=== PATIENT | male | born 1990 | race Caucasian/White ===

== ENCOUNTER 2019-12-25 22:21 | Inpatient (IN) | payer OTHER ==
[~2019-12-25] VITALS: Ht 180.3 cm; Wt 106.9 kg
[2019-12-25 23:11] LABS: BASOPHILS ABSOLUTE AUTO 0.12 K/mm3 (0.00-0.23); BASOPHILS PERCENT AUTO 1 % (0-2); EOSINOPHILS ABSOLUTE AUTO 0.15 K/mm3 (0.00-0.68); EOSINOPHILS PERCENT AUTO 1 % (0-6); Hematocrit 51.8 % (37.0-53.0); Hemoglobin 17.3 g/dL (13.5-17.5); IMMATURE GRAN ABSOLUTE AUTO 0.09 K/mm3 (0.00-0.10); IMMATURE GRAN PERCENT AUTO 1 % (0-1); LYMPHOCYTES ABSOLUTE AUTO 1.53 K/mm3 (0.84-5.20); LYMPHOCYTES PERCENT AUTO 11 % (21-46); MONOCYTES ABSOLUTE AUTO 1.23 K/mm3 (0.16-1.47); MONOCYTES PERCENT AUTO 9 % (4-13); Mean Corpuscular HGB 31.6 pg (26.0-34.0); Mean Corpuscular HGB Conc 33.4 g/dL (31.5-36.5); Mean Corpuscular Volume 95 fL (80-100); Mean Platelet Volume 10.3 fL (9.1-12.4); NEUTROPHILS ABSOLUTE AUTO 11.19 K/mm3 (1.96-9.15); NEUTROPHILS PERCENT AUTO 78 % (41-73); Platelet Count 199 K/mm3 (150-400); RDW Coefficient Variation 12.3 % (11.7-14.2); RDW Standard Deviation 43.1 fL (35.1-46.3); Red Blood Cell Count 5.48 M/mm3 (4.30-5.90); White Blood Cell Count 14.31 K/mm3 (4.00-11.30)
[2019-12-25 23:30] LABS: Alanine Aminotransfer (ALT/SGP 209 U/L (12-78); Albumin, Blood 3.9 g/dL (3.4-5.0); Albumin/Globulin Ratio 1.1 (0.8-1.8); Alk Phos 64 U/L (50-136); Anion Gap 9 mmol/L (6-16); Aspartate Aminotrans (AST/SGOT 171 U/L (12-37); Bilirubin, Total 1.4 mg/dL (0.1-1.0); Blood Urea Nitrogen 6 mg/dL (8-24); Bun/Creatinine Ratio 8.3 (12.0-20.0); CO2, Blood 27 mmol/L (21-32); Calcium, Blood 9.5 mg/dL (8.5-10.1); Chloride, Blood 102 mmol/L (98-108); Creatinine, Blood 0.73 mg/dL (0.60-1.20); Globulin, Blood 3.7 g/dL (2.2-4.0); Glomerular Filtration Rate >60 (60-); Glucose, Blood 154 mg/dL (70-99); Potassium, Blood 3.5 mmol/L (3.5-5.5); Sodium, Blood 138 mmol/L (136-145); Total Protein, Blood 7.6 g/dL (6.4-8.2)
[2019-12-26] MEDS ORDERED: Prinivil10 MG PO (02:08)
[2019-12-26 04:26] LABS: BASOPHILS ABSOLUTE AUTO 0.09 K/mm3 (0.00-0.23); BASOPHILS PERCENT AUTO 1 % (0-2); EOSINOPHILS ABSOLUTE AUTO 0.01 K/mm3 (0.00-0.68); EOSINOPHILS PERCENT AUTO 0 % (0-6); Hematocrit 51.7 % (37.0-53.0); Hemoglobin 17.3 g/dL (13.5-17.5); IMMATURE GRAN ABSOLUTE AUTO 0.04 K/mm3 (0.00-0.10); IMMATURE GRAN PERCENT AUTO 0 % (0-1); LYMPHOCYTES ABSOLUTE AUTO 1.06 K/mm3 (0.84-5.20); LYMPHOCYTES PERCENT AUTO 9 % (21-46); MONOCYTES ABSOLUTE AUTO 1.36 K/mm3 (0.16-1.47); MONOCYTES PERCENT AUTO 12 % (4-13); Mean Corpuscular HGB 31.2 pg (26.0-34.0); Mean Corpuscular HGB Conc 33.5 g/dL (31.5-36.5); Mean Corpuscular Volume 93 fL (80-100); NEUTROPHILS ABSOLUTE AUTO 9.11 K/mm3 (1.96-9.15); NEUTROPHILS PERCENT AUTO 78 % (41-73); Platelet Count 187 K/mm3 (150-400); RDW Standard Deviation 41.8 fL (35.1-46.3); Red Blood Cell Count 5.54 M/mm3 (4.30-5.90); White Blood Cell Count 11.67 K/mm3 (4.00-11.30)
[2019-12-26 04:52] LABS: Alanine Aminotransfer (ALT/SGP 188 U/L (12-78); Albumin, Blood 3.8 g/dL (3.4-5.0); Albumin/Globulin Ratio 1.1 (0.8-1.8); Anion Gap 10 mmol/L (6-16); Aspartate Aminotrans (AST/SGOT 136 U/L (12-37); Bilirubin, Total 1.9 mg/dL (0.1-1.0); Blood Urea Nitrogen 5 mg/dL (8-24); CHOL/HDL RATIO 2.9; CO2, Blood 25 mmol/L (21-32); Calcium, Blood 9.6 mg/dL (8.5-10.1); Chloride, Blood 102 mmol/L (98-108); Cholesterol 214 mg/dL (50-200); Globulin, Blood 3.4 g/dL (2.2-4.0); Glucose, Blood 100 mg/dL (70-99); HDL Cholesterol 75 mg/dL (>39); LDL/HDL RATIO 1.6; Low Density Lipoprotein Chol 123 mg/dL (0-110); Magnesium, Blood 1.5 mg/dL (1.6-2.4); Potassium, Blood 3.9 mmol/L (3.5-5.5); Sodium, Blood 137 mmol/L (136-145); Total Protein, Blood 7.2 g/dL (6.4-8.2); Triglycerides 79 mg/dL (30-140); Very Low Density Lipoprot Chol 15 mg/dL (6-28)
[2019-12-26 05:01] LABS: Alk Phos 59 U/L (50-136); Bun/Creatinine Ratio 8.1 (12.0-20.0); Creatinine, Blood 0.61 mg/dL (0.60-1.20); Glomerular Filtration Rate >60 (60-)
--- NOTE | 2019-12-26 07:33 | NUR ---
END OF SHIFT SUMMARY PT TO UNIT FROM ED. PT HAD JUST RECEIVED IV FENTANYL IN ED. PT STATES EPIGASTRIC PAIN BUT WAS TOLERABLE. CIWA <8 AT THAT TIME. ADMISSION PAPERWORK COMPLETED. EPIGASTRIC PAIN INCREASED GREATLY ANDS SBP MIKIE >160. ORDERES RECEIVED FOR IV HYDRALZINE AND FENTANYL. ADMINISTERED TO NO AVAOIL. DR TO ROOM. ORDERES PLACED. GRADUALLY, CIWA >8, IV ATIVAN 2MG ADMINISTERED, 50MG LIBRIUM GIVEN, AND EVENTUALLY IV DILAUDID ADMINISTERED. THIS COMBINATION FINALLY HELPED TO RELIEVE THE PATIENT'S PAIN. SINCE DILAUDID ADMIN, PT HAS BEEN RESTING QUIETLKY. NONLABOIRED RR >14. NS INFUSING AT 125 ALONG WITH IV THIAMINE AND KCL PER EMAR. PT ASYMPTOMATIC TO THIS. NOW THAT PAIN IS BEING RELIVED, SBP 160 AND DECREASING SLOWLY. REPORT GIVEN TO ONCOMING RN.
--- NOTE | 2019-12-26 19:38 | NUR ---
SHIFT SUMMARY PT A&Ox4; CALM AND COOPERATIVE [facility] CARE. PT RESTING IN BED DURING SHIFT, IND IN ROOM. PT REPORTS SEVERE EPIGASTRIC PAIN, MEDICATED PER EMAR WITH POSITIVE RESULTS FROM DILAUDID. PT REPORTS NAUSEA THIS AFTERNOON, RESOLVE AFTER ZOFRAN x1. CIWA SCORE 6-9 T/O SHIFT, MEDICATED WITH ATIVAN x1 FOR TREMORS, ANXIETY AND AGGITATION. PT RECEIVED THIAMINE, MAGNESIUM AND POTASSIUM REPLACEMENTS. PT REQUESTING WATER T/O SHIFT, EDUCATED PT ON THE NEED TO REST GI TRACT; OFFERED MOUTH SWABS. ELEVATED BP NOTED, NOTIFIED DR SOTO THIS AFTERNOON, NEW ORDERS; ADMINISTERED CLONIDINE x1. OTHER VSS. NO OTHER ACUTE CHANGES NOTED. REPORT GIVEN TO ONCOMING RN.
--- NOTE | 2019-12-26 20:00 | NUR ---
ASSUMED CARE AT 1900. REVIEWED NEED FOR ADDITIONAL PAIN RELIEF OF ABD PAIN. NO ATTEMPT TO TAKE SIP OF H2O SO DEFERRED USE OF LIBRIUM FOR NOW. SUBLIMAZE IV , LOWEST DOSE. CIWA 1-2. W/ SUCH MINIMAL TREMORS OF HANDS. CLEAR MENTATION AND NO ACUTE ISSUES RELATED TO GI OR ETOH WITHDRAWL.ZOFRAN GIVEN MORE TO PREVENT NAUSEA. OFF TO SLEEP . REPORT TO BELKIS CABALLERO TO ASSUME CARE AT 1000.
[2019-12-27 04:09] LABS: BASOPHILS ABSOLUTE AUTO 0.07 K/mm3 (0.00-0.23); BASOPHILS PERCENT AUTO 1 % (0-2); EOSINOPHILS ABSOLUTE AUTO 0.13 K/mm3 (0.00-0.68); EOSINOPHILS PERCENT AUTO 1 % (0-6); Hematocrit 50.5 % (37.0-53.0); Hemoglobin 16.8 g/dL (13.5-17.5); IMMATURE GRAN ABSOLUTE AUTO 0.04 K/mm3 (0.00-0.10); IMMATURE GRAN PERCENT AUTO 0 % (0-1); LYMPHOCYTES PERCENT AUTO 12 % (21-46); MONOCYTES ABSOLUTE AUTO 1.27 K/mm3 (0.16-1.47); MONOCYTES PERCENT AUTO 11 % (4-13); Mean Corpuscular HGB 31.5 pg (26.0-34.0); Mean Corpuscular HGB Conc 33.3 g/dL (31.5-36.5); Mean Corpuscular Volume 95 fL (80-100); Mean Platelet Volume 11.1 fL (9.1-12.4); NEUTROPHILS ABSOLUTE AUTO 8.96 K/mm3 (1.96-9.15); NEUTROPHILS PERCENT AUTO 76 % (41-73); Platelet Count 149 K/mm3 (150-400); RDW Coefficient Variation 11.9 % (11.7-14.2); RDW Standard Deviation 41.9 fL (35.1-46.3); Red Blood Cell Count 5.34 M/mm3 (4.30-5.90); White Blood Cell Count 11.87 K/mm3 (4.00-11.30)
[2019-12-27 04:26] LABS: Anion Gap 7 mmol/L (6-16); Blood Urea Nitrogen 5 mg/dL (8-24); Bun/Creatinine Ratio 6.8 (12.0-20.0); CO2, Blood 25 mmol/L (21-32); Calcium, Blood 8.5 mg/dL (8.5-10.1); Chloride, Blood 101 mmol/L (98-108); Creatinine, Blood 0.74 mg/dL (0.60-1.20); Glomerular Filtration Rate >60 (60-); Glucose, Blood 86 mg/dL (70-99); Magnesium, Blood 1.9 mg/dL (1.6-2.4); Sodium, Blood 133 mmol/L (136-145)
--- NOTE | 2019-12-27 05:10 | NUR ---
SHIFT SUMMARY: PT IS ALERT AND ORIENTED. PT IS CALM AND COOPERATIVE WITH CARE. PT CALLS APPROPRIATELY. PT IS INDEPENDENT IN THE ROOM. PT REPORTS INTERMITTENT ABD PAIN, MEDICATING PER EMAR. PT DENIES NAUSEA, VOMITING, AND SOB. NO WITHDRAWAL SYMPTOMS THROUGHOUT THE NIGHT. PT SLEPT MUCH OF THE SHIFT WHEN NOT DISTURBED. NO ACUTE CHANGES OR COMPLICATIONS THIS SHIFT. WILL CONTINUE TO MONITOR.
--- NOTE | 2019-12-27 16:41 | NUR ---
PATIENT ARRIVED TO ROOM 333 VIA WHEELCHAIR ACCOMPANIED BY AN RN. PATIENT TRANSFERED SELF INTO HOSPITAL BED AND SETTLED INTO ROOM. NO COMPLAINTS OF PAIN OR DISCOMFORT AT THIS TIME. WILL CONTINUE TO MONITOR AND PROVIDE CARE NEEDED.
--- NOTE | 2019-12-27 16:42 | NUR ---
SHIFT SUMMARY PT A&Ox4; COOPERATIVE WITH CARE. PT SBA TO BATHROOM; RESTINGI N BED FOR MAJORITY OF SHIFT. PT REPORTS SLEEPING FOR MAJORITY OF SHIFT. CIWA RANGING FROM 6-11; MEDICATED PER EMAR. PT REPORTS SEVERE EPIGASTRIC PAIN; MEDICATED PER EMAR. STARTED ON CLEAR LIQUIDS, EDUCATED PT ON TAKING SMALL SIPS. PT REPORTS NAUSEA INTERMITTIENTLY. ELEVATED BP NOTED; MEDICATED WITH SCHDULED AND PRN MEDCIATIONS. OTHER VSS. NO OTHER ACUTE CHANGES NOTED. REPORT GIVEN TO YAKELIN Louie RN ASSUMING CARE OF PT. PT TRANSFERED TO ROOM 333 AT APPROX 1430.
--- NOTE | 2019-12-27 19:36 | NUR ---
PT STATES HE FEELS A LITTLE "JERKY AND SHAKY". MILD TREMORS VISIBLE. CIWA SCORE OF 5. ATIVAN 1 MG GIVEN. A/OX4. DENIES N/V, SOB, CHEST PAIN. WILL CONTINUE TO MONITOR.
--- NOTE | 2019-12-28 04:27 | NUR ---
HOT PRESS OPERATOR SUMMARY PT A/O X4. INDEPENDENT IN ROOM. SLEPT MOST OF THE NIGHT TONIGHT. PT REPORTS HE WOULD SUDDENLY WAKE UP DUE TO HIS ABD. PAIN. MEDICATED FOR PAIN THROUGHOUT THE SHIFT. CIWA SCORE OF 1-5 TONIGHT. ATIVAN GIVEN. VSS.
--- NOTE | 2019-12-28 19:30 | NUR ---
SHIFT SUMMARY: A&O X 4, PLEASANT AND COOPERATIVE. C/O EPIGASTRIC PAIN AND WAS MEDICATED PER EMAR. WITHDRAWAL SXS UNDER CONTROL, CIWA < 8. TOLERATING PO INTAKE BUT IS NOT EATING MUCH. IS INDEPENDENT IN ROOM, USING BR. PO FLUID INTAKE INCREASED SO IVF NOT GIVEN PER DR. SOTO'S VERBAL ORDER; ORDER D/C'D. GAVE PT HANDOUT ON PANCREATITIS, DISCUSSED WITH HIM. GAVE UPDATE TO VAISHALI FROM [facility] TODAY. PLAN IS FOR D/C IN THE NEXT COUPLE DAYS IF TOLERATING PO AND PAIN IS MANAGED WITH PO PAIN MEDS.
--- NOTE | 2019-12-29 07:36 | NUR ---
COMMISSARY AGENT SUMMARY PT A/O X4. INDEPENDENT IN ROOM. DENIES CHEST PAIN, SOB, DIZZINIESS. PAIN IN ABD IS BETTER CONTROLLED TODAY COMPARED TO PREVIOUS COMMISSARY AGENT. ONLY MEDICATED FOR PAIN 2-3 TIMES TONIGHT. LAST CIWA SCORE OF 1. PT BEEN MEDICATED FOR NAUSEA ONCE. PLEASANT AND COOPERATIVE. VSS. NO ACUTE CHANGES.
--- NOTE | 2019-12-29 11:27 | NUR ---
SPOKE TO COUNSELOR FROM [facility], WAS INFORMED THAT PATIENT HAS COMPLETED THEIR DETOX PROGRAM OF TODAY, SO WHEN HE IS D/C'D HE WILL BE GOING HOME. IF PT WANTS RESIDENTIAL PROGRAM, HE CAN CALL [facility] AT [phone].
--- NOTE | 2019-12-29 17:59 | NUR ---
SHIFT SUMMARY: A&O X 4 TODAY, STATED PAIN IS MUCH IMPROVED. C/O NAUSEA ONCE, MEDICATED WITH ADEQUATE RELIEF. C/O PAIN IN MID ABDOMEN, MEDICATED WITH GOOD EFFECT. TOLERATING FULL LIQUID DIET, NO VOMITING. AMBULATES INDEPENDENTLY IN ROOM. CIWA SCORES < 5 ALL DAY, IN GOOD SPIRITS. IS LOOKING FORWARD TO D/C.
[2019-12-30 04:30] LABS: BASOPHILS ABSOLUTE AUTO 0.07 K/mm3 (0.00-0.23); BASOPHILS PERCENT AUTO 1 % (0-2); EOSINOPHILS ABSOLUTE AUTO 0.21 K/mm3 (0.00-0.68); EOSINOPHILS PERCENT AUTO 2 % (0-6); Hematocrit 47.4 % (37.0-53.0); Hemoglobin 15.8 g/dL (13.5-17.5); IMMATURE GRAN ABSOLUTE AUTO 0.07 K/mm3 (0.00-0.10); IMMATURE GRAN PERCENT AUTO 1 % (0-1); LYMPHOCYTES PERCENT AUTO 15 % (21-46); MONOCYTES ABSOLUTE AUTO 1.61 K/mm3 (0.16-1.47); MONOCYTES PERCENT AUTO 15 % (4-13); Mean Corpuscular HGB 31.5 pg (26.0-34.0); Mean Corpuscular HGB Conc 33.3 g/dL (31.5-36.5); Mean Corpuscular Volume 95 fL (80-100); Mean Platelet Volume 10.8 fL (9.1-12.4); NEUTROPHILS ABSOLUTE AUTO 7.25 K/mm3 (1.96-9.15); NEUTROPHILS PERCENT AUTO 67 % (41-73); Platelet Count 237 K/mm3 (150-400); RDW Coefficient Variation 11.7 % (11.7-14.2); RDW Standard Deviation 40.4 fL (35.1-46.3); Red Blood Cell Count 5.01 M/mm3 (4.30-5.90); White Blood Cell Count 10.81 K/mm3 (4.00-11.30)
[2019-12-30 04:56] LABS: Anion Gap 5 mmol/L (6-16); Blood Urea Nitrogen 7 mg/dL (8-24); Bun/Creatinine Ratio 9.1 (12.0-20.0); CO2, Blood 30 mmol/L (21-32); Calcium, Blood 8.9 mg/dL (8.5-10.1); Chloride, Blood 101 mmol/L (98-108); Creatinine, Blood 0.77 mg/dL (0.60-1.20); Glomerular Filtration Rate >60 (60-); Glucose, Blood 90 mg/dL (70-99); Magnesium, Blood 2.1 mg/dL (1.6-2.4); Potassium, Blood 3.7 mmol/L (3.5-5.5); Sodium, Blood 136 mmol/L (136-145)
--- NOTE | 2019-12-30 06:43 | NUR ---
RETAIL SALES ASSOCIATE BILINGUAL SUMMARY slept well. CIWA scores started around 5 and were down to two last two assessments. Patient very grateful for the "wake up call" . Looking forward to getting home to his family. upper quadrants still painful, but improving per patient.
[2019-12-30] MEDS ORDERED: GABA600 PO (10:18)
[2019-12-30] MEDS ORDERED: ONDA4ODT MM (10:19)
[2019-12-30] MEDS ORDERED: IBUP400 PO (10:19)
[2019-12-30] MEDS ORDERED: OXYC5 PO (10:19)
--- NOTE | 2019-12-30 14:48 | NUR ---
DISCHARGE SUMMARY PT DISCHARGED TO HOME. PT LEFT ROOM VIA WHEELCHAIR WITH SANDBLAST OR SHOTBLAST EQUIPMENT TENDER ESCORT. IV DC'D AND BELONGINGS RETURNED. PT EDUCATED ON THE IMPORTANCE OF ESTABLISHING A PCP AND FOLLOWING UP THERE FOR POST HOSPITALIZATION CARE. PT AGREES. ALL DISCHARGE INSTRUCTIONS DISCUSSED, ALL QUESTIONS ANSWERED.
== END 2019-12-30 12:45 | disposition home or self-care (01) | DRG 439 ==
LOC: ER 22:21 → PCU 12-26 01:44 → MEDS 12-27 16:54
PROVIDERS: Emergency Medicine; Internal Medicine; ADMIT Internal Medicine
DX: K85.20 Alcohol induced acute pancreatitis without necrosis or infection (principal); F10.239 Alcohol dependence with withdrawal, unspecified; I10 Essential (primary) hypertension; K70.0 Alcoholic fatty liver
CPT/HCPCS: 36415; 74177; 76705; 80048; 80053; 80061; 83690; 83735; 85025; 96374-59; 96375; 96376; 99285-25; J0360; J1170; J1650; J2060; J2405; J3010; J3411; J3475; J3480; J7030; Q9967